=== PATIENT | female | born 1990 | race Caucasian/White ===

== ENCOUNTER 2021-12-11 11:14 | Inpatient (IN) | payer MEDICAID ==
[~2021-12-11] VITALS: Ht 162.6 cm; Wt 104.3 kg
[2021-12-11] MEDS: LACTATED RINGERS 1,000 ML IV SCH (01:40)
[2021-12-11 13:24] LABS: BASOPHILS % (AUTO) 0.3 % (0.0-2.0); EOSINOPHILS # (AUTO) 0.1 K/uL (0-0.4); EOSINOPHILS % (AUTO) 0.5 % (0.0-4.0); HEMATOCRIT 37.8 % (36-48); HEMOGLOBIN 12.8 g/dL (12.0-16.0); LYMPHOCYTES # (AUTO) 2.4 K/uL (2.5-16.5); LYMPHOCYTES % (AUTO) 17.1 % (20.5-51.1); MEAN CORPUSCULAR HEMOGLOBIN 29 pg (27-31); MEAN CORPUSCULAR HGB CONC 34 g/dL (33-37); MEAN CORPUSCULAR VOLUME 85.3 fL (80-94); MONOCYTES # (AUTO) 0.5 K/uL (0.8-1.0); MONOCYTES % (AUTO) 3.6 % (1.7-9.3); NEUTROPHILS % (AUTO) 78.5 % (42.2-75.2); PLATELET COUNT (AUTO) 212 K/uL (140-450); RED BLOOD CELL COUNT(AUTO) 4.42 MIL/uL (4.20-5.40); RED CELL DISTRIBUTION WIDTH 14.9 % (11.6-13.7)
[2021-12-11 13:32] LABS: PROTHROMBIN TIME 9.8 secs (10.8-13.4)
[2021-12-11 13:36] LABS: APPEARANCE,URINE CLEAR (CLEAR); BILIRUBIN,URINE NEGATIVE (NEGATIVE); BLOOD, URINE 1+ (NEGATIVE); COLOR,URINE YELLOW (YELLOW); LEUKOCYTE ESTERASE ,URINE NEGATIVE (NEGATIVE); NITRITE, URINE NEGATIVE (NEGATIVE); PH,URINE 6.5 (5.0-9.0); UGLUCOSE NEGATIVE (NEGATIVE)
[2021-12-11 13:38] LABS: ALBUMIN 2.2 g/dL (3.4-5.0); ANION GAP 13.3 (8-16); CARBON DIOXIDE 20.5 mmol/L (21-32); CREATININE 0.7 mg/dL (0.6-1.3); POTASSIUM 3.8 mmol/L (3.5-5.1); TOTAL BILIRUBIN 0.3 mg/dL (0.0-1.0)
[2021-12-11 14:26] LABS: WBC,URINE 0-5 /HPF (0-5)
[2021-12-11 14:35] LABS: URINE TOTAL PROTEIN 178.4 mg/dL (0-12)
[2021-12-11 15:30] VITALS: BP 138/91
[2021-12-11] MEDS ORDERED: METHYLERGONOVINE 0.2 MG/ML AMP IM PRN (16:15)
[2021-12-11] MEDS ORDERED: CARBOPROST 250 MCG/ML AMP IM PRN (16:15)
[2021-12-11] MEDS ORDERED: MORPHINE SULFATE 5 MG/ML VIAL IVP PRN (16:15)
[2021-12-11] MEDS ORDERED: PNV91TAB8 PO (17:54)
[2021-12-11] MEDS ORDERED: LACTATED RINGERS 1,000 ML IV SCH (18:40)
[2021-12-11] MEDS ORDERED: MISOPROSTOL 25 MCG TAB ONE (23:59)
[2021-12-12] MEDS ORDERED: MORPHINE SULFATE 10 MG/ML VIAL ONE (04:38)
[2021-12-12] MEDS: ONDANSETRON 4 MG/2 ML VIAL IVP PRN (04:42)
[2021-12-12] MEDS: LACTATED RINGERS 1,000 ML IV SCH ×2 (05:47→14:38)
--- NOTE | 2021-12-12 08:47 | NUR ---
PATIENT HAS BEEN SCREENED AND CATEGORIZED LOW NUTRITION RISK. PATIENT WILL BE SEEN WITHIN 7 DAYS OF ADMISSION. 12/18/21 REVIEWED BY TORRES TURCI[address]
[2021-12-12] MEDS: MISOPROSTOL 25 MCG TAB VG SCH ×2 (15:21→21:35)
[2021-12-13] MEDS ORDERED: MORPHINE SULFATE 10 MG/ML VIAL ONE ×3 (00:07→10:11)
[2021-12-13] MEDS: ONDANSETRON 4 MG/2 ML VIAL IVP PRN ×3 (00:15→10:21)
[2021-12-13 04:59] VITALS: BP 131/64
[2021-12-13] MEDS ORDERED: LACTATED RINGERS 500 ML IV SCH (08:25)
[2021-12-13] MEDS ORDERED: CITRIC ACID/SODIUM CITRATE 30 ML UDC PO SCH (10:30)
[2021-12-13] MEDS ORDERED: MORPHINE PRES FREE 10 MG/10 ML AMP IV ONE (11:28)
[2021-12-13] MEDS ORDERED: MIDAZOLAM 2 MG/2 ML VIAL ONE (11:29)
[2021-12-13] MEDS ORDERED: MEPERIDINE 25 MG/ML SYR IVP PRN (12:10)
[2021-12-13] MEDS ORDERED: NALOXONE 0.4 MG/ML VIAL IVP PRN ×3 (12:10)
[2021-12-13] MEDS ORDERED: HYDROmorphone 1 MG/ML AMP IVP PRN (12:10)
[2021-12-13] MEDS ORDERED: ONDANSETRON 4 MG/2 ML VIAL IVP PRN ×2 (12:10)
[2021-12-13] MEDS ORDERED: NALBUPHINE 10 MG/ML AMP IVP PRN (12:10)
[2021-12-13] MEDS ORDERED: diphenhydrAMINE 50 MG/ML VIAL IVP PRN ×2 (12:10)
[2021-12-13] MEDS: OXYTOCIN 20 UNITS in LACTATED RINGERS 1,000 ML IV SCH ×2 (13:14→17:56)
[2021-12-13] MEDS ORDERED: bisacodyL 5 MG TABEC PO PRN (16:00)
[2021-12-13] MEDS ORDERED: KETOROLAC 30 MG/ML VIAL IVP PRN (16:00)
[2021-12-13] MEDS ORDERED: METHYLERGONOVINE 0.2 MG/ML AMP IM PRN (16:00)
[2021-12-13] MEDS ORDERED: MEASLES, MUMPS, AND RUBELLA 1 VIAL SQVAC ONE (16:00)
[2021-12-13] MEDS ORDERED: MEASLES, MUMPS, AND RUBELLA 1 VIAL SQVAC SCH (16:15)
[2021-12-13] MEDS ORDERED: OXYTOCIN 20 UNITS/LR PREMIX 1,000 ML IV ONE (17:51)
[2021-12-13] MEDS: KETOROLAC 30 MG/ML VIAL IM/IVP SCH (17:56)
[2021-12-14] MEDS: KETOROLAC 30 MG/ML VIAL IM/IVP SCH ×2 (00:15→05:36)
[2021-12-14] MEDS ORDERED: OXYTOCIN 20 UNITS/LR PREMIX 1,000 ML IV ONE (01:50)
[2021-12-14] MEDS: OXYTOCIN 20 UNITS in LACTATED RINGERS 1,000 ML IV SCH (02:04)
[2021-12-14 06:09] LABS: BASOPHILS % (AUTO) 0.3 % (0.0-2.0); EOSINOPHILS # (AUTO) 0.1 K/uL (0-0.4); EOSINOPHILS % (AUTO) 0.6 % (0.0-4.0); HEMATOCRIT 30.5 % (36-48); HEMOGLOBIN 10.3 g/dL (12.0-16.0); LYMPHOCYTES # (AUTO) 1.7 K/uL (2.5-16.5); LYMPHOCYTES % (AUTO) 14.1 % (20.5-51.1); MEAN CORPUSCULAR HEMOGLOBIN 29 pg (27-31); MEAN CORPUSCULAR HGB CONC 34 g/dL (33-37); MEAN CORPUSCULAR VOLUME 85.5 fL (80-94); MONOCYTES # (AUTO) 0.6 K/uL (0.8-1.0); MONOCYTES % (AUTO) 4.9 % (1.7-9.3); NEUTROPHILS # (AUTO) 9.8 K/uL (1.8-7.7); NEUTROPHILS % (AUTO) 80.1 % (42.2-75.2); PLATELET COUNT (AUTO) 170 K/uL (140-450); RED BLOOD CELL COUNT(AUTO) 3.57 MIL/uL (4.20-5.40); WHITE BLOOD COUNT (AUTO) 12.3 K/uL (4.8-10.8)
[2021-12-14] MEDS: oxyCODONE/APAP 5/325 MG 1 TAB TAB PO PRN (18:09)
[2021-12-14] MEDS: SIMETHICONE 80 MG TAB.CHEW PO PRN (18:09)
[2021-12-14] MEDS ORDERED: IBUPROFEN 800 MG TAB PO PRN (20:20)
[2021-12-15] MEDS ORDERED: IBUPROFEN 800 MG TAB PO PRN (05:35)
[2021-12-15] MEDS: oxyCODONE/APAP 5/325 MG 1 TAB TAB PO PRN ×2 (05:41→14:28)
[2021-12-15] MEDS: SIMETHICONE 80 MG TAB.CHEW PO PRN (06:11)
== END 2021-12-15 16:30 | disposition home or self-care (01) | DRG 540 ==
LOC: MLD 11:14 → OBSVTOIN 15:05 → MLD 20:19 → MFCC 12-13 13:45
PROVIDERS: ADMIT Obstetrics & Gynecology; ATTEND Obstetrics & Gynecology
PROC: 10D00Z1 Extraction of Products of Conception, Low, Open Approach (ICD-10-PCS; principal; 2021-12-14)
DX: O13.4 Gestational [pregnancy-induced] hypertension without significant proteinuria, complicating childbirth (principal); O14.94 Unspecified pre-eclampsia, complicating childbirth; O45.93 Premature separation of placenta, unspecified, third trimester; O34.13 Maternal care for benign tumor of corpus uteri, third trimester; O69.81X0 Labor and delivery complicated by cord around neck, without compression, not applicable or unspecified; D25.2 Subserosal leiomyoma of uterus; Z20.822 Contact with and (suspected) exposure to COVID-19; Z3A.37 37 weeks gestation of pregnancy; Z37.0 Single live birth
CPT/HCPCS: 36415; 51702; 59200; 76805; 80053; 81001; 82570; 83605; 84550; 85025; 85384; 85610; 85730; 86592; 86886; 86900; 86901; 87086; 87653-90; J0690; J1200; J1885; J2250; J2270; J2405; J2590; J7060; J7120; Q0092